=== PATIENT | male | born 1960 ===

== ENCOUNTER 2024-12-10 20:01 | Emergency (ER) | payer SELFPAY ==
[2024-12-10 20:19] VITALS: BP 155/75; PULSE 88; RESP 12; TEMP 36.7; O2SAT 95; BMI 28.8
--- NOTE | 2024-12-10 21:28 | DI.RAD.S_ITS ---
PROCEDURE: XR CHEST 1V INDICATIONS: fall with pain to rt rib cage TECHNIQUE: One view of the chest was acquired. COMPARISON: None. FINDINGS: Surgical changes and devices: None. Lungs and pleura: Prominence of bronchovascular markings Mediastinum: [id number] cardiomegaly Bones and chest wall: No suspicious bony lesions. Overlying soft tissues appear unremarkable. IMPRESSION: 1. Cardiomegaly with possible mild pulmonary vascular congestion. 2. No definite pneumothorax or pleural effusion seen. Dictated by: Richard Talavera M.D. on 12/10/2024 at 22:01 Approved by: Richard Talavera M.D. on 12/10/2024 at 22:02
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
--- NOTE | 2024-12-10 22:31 | DI.CT.S_ITS ---
PROCEDURE: CT ABDOMEN PELVIS WO CON INDICATIONS: RUQ pain after fall, abrasion RUQ, hx CKD-III TECHNIQUE: After the administration of oral contrast, 5 mm thick sections acquired from the diaphragms to the symphysis. 5 mm coronal and sagittal reformats were performed. For radiation dose reduction, the following was used: automated exposure control, adjustment of mA and/or kV according to patient size. COMPARISON: None. FINDINGS: Image quality: Diagnostic Lower chest: 1.3 cm right lower lobe pulmonary nodule. Mildly patulous distal esophagus and small hiatal hernia. Coronary calcifications and cardiomegaly Liver: No capsular hematoma is definitely seen. Solid organs are not well assessed without IV contrast Gallbladder and biliary system: Unremarkable, nondilated Pancreas: No ductal dilation Spleen: Nonenlarged Adrenals: No discrete nodules Kidneys: No contour deforming mass. No hydronephrosis. Vessels and lymph nodes: No abdominal aortic aneurysm. Atherosclerotic calcifications are present. No enlarged lymph nodes by size criteria. Bowel and peritoneum: No evidence of hemoperitoneum. No bowel obstruction. The cecum is in the right upper quadrant, without associated mesenteric congestion. Body wall: Small fat containing inguinal hernias. Pelvis: Under distended urinary bladder. Possible mild wall thickening. Prostate is not well assessed on this study. Suspect mild prostatomegaly Bones: There are degenerative osseous changes. Suspect Modic changes and endplate irregularities and lucencies at T11-T12. IMPRESSION: On this noncontrast study, no definite acute traumatic injury is identified. No hemoperitoneum. Please no solid organs are not well assessed without IV contrast. 1.3 cm right lower lobe pulmonary nodule, dedicated chest CT with contrast, PET- CT, and/or sampling is suggested. Bladder wall thickening, correlate urinalysis. Endplate irregularity and lucency focally seen at T11-T12 with sclerotic changes. This is most commonly degenerative Modic changes. Early discitis osteomyelitis however can appear similar on CT, correlate with any symptoms. Dictated by: Miko Petit M.D. on 12/10/2024 at 22:55 Approved by: Miko Petit M.D. on 12/10/2024 at 23:01
[2024-12-10] MEDS: HYDROMORPHONE 0.5 MG INJ IV (22:51)
[2024-12-10] MEDS: HYDROCODONE/ACET 5/325 PREPACK 1 BOTTLE MISC (23:40)
[2024-12-10] MEDS: HYDROCODONE/ACET 5/325 TABLET 1 TAB PO (23:40)
[2024-12-10] MEDS: ALBUTEROL HFA PREPACK 1 BOX MISC (23:40)
== END 2024-12-11 00:01 | disposition home or self-care (01) ==
PROVIDERS: Emergency Provider Emergency Medicine
DX: S20.211A Contusion of right front wall of thorax, initial encounter (principal); S30.1XXA Contusion of abdominal wall, initial encounter; R91.1 Solitary pulmonary nodule; N32.89 Other specified disorders of bladder; V94.0XXA Hitting object or bottom of body of water due to fall from watercraft, initial encounter
CPT/HCPCS: 36415; 71045; 74176; 81003; 96374; 99284; J1171